=== PATIENT | female | born 1995 | race African-American/Black ===

== ENCOUNTER 2017-10-19 16:15 | Emergency (ER) | payer OTHER ==
[~2017-10-19] VITALS: Ht 160 cm; Wt 60.6 kg
[2017-10-19 16:21] VITALS: TEMP 37; Ht 160 cm; Wt 60.6 kg
[2017-10-19] MEDS ORDERED: ONDANSETRON INJ 2 MG/ML 2 ML VIAL IV STA (16:26)
[2017-10-19] MEDS ORDERED: SODIUM CHLORIDE 0.9% 1000ML 1,000 ML IV STA (16:26)
[2017-10-19] MEDS ORDERED: METHYLPREDNISOLONE 125 MG VIAL IV STA (16:26)
[2017-10-19] MEDS ORDERED: RANITIDINE HCL 50 MG/100 ML D5W IV STA (16:26)
[2017-10-19] MEDS ORDERED: EPINEPHRINE ADULT AUTO-INJECT 0.3 MG SYR IM STA (16:26)
[2017-10-19] MEDS ORDERED: DiphenhydrAMINE HCL 50 MG/ML VIAL IV STA (16:26)
--- NOTE | 2017-10-19 16:34 | EMERGENCY ROOM VISIT NOTE ---
History Report prepared by Jasonibevette: Roderick Wilcox Under the Supervision of: Dr. Johnathon Escoto M.D. First contact with patient: 16:24 Chief Complaint: ALLERGIC REACTION Stated Complaint: PEANUT ALLERGY SEVERE History of Present Illness The patient is a 22 year old female who presents to the Emergency Room with complaints of an allergic reaction that began just shortly prior to arrival. The patient notes that she has a known walnut allergy, and ingested a mix containing almonds and cashews about 30 minutes ago. The reaction started just a moment ago, roughly 30 minutes after eating the almonds and cashews. She is complaining of swelling across her face and difficulty breathing. She has never experienced a reaction this severe before, but has felt some mild puffiness to her lips in the past. The patient is a [employer] student, but is adamant that we do not call her mother. She denies any nausea/vomiting. 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 Review of Systems See HPI for pertinent positives & negatives. A total of 10 systems reviewed and were otherwise negative. Past Medical & Surgical Known Hx of [place] Allergy Family History non-contributory Social History Smoking Status: Never Smoker Marital Status: in relationship Housing Status: lives with roommate Occupation Status: student Current/Historical Medications Scheduled Epinephrine (Epipen), 0.3 MG IM UD Prednisone (Prednisone Tab), 0 PO DAILY Ranitidine Hcl (Zantac), 150 MG PO BID Allergies Coded Allergies: [place] (Unverified Allergy, Unknown, SWELLING OF LIPS, 10/19/17) Physical Exam Vital Signs Date Time Temp Pulse Resp B/P (MAP) Pulse Ox O2 Delivery O2 Flow Rate FiO2 10/19/17 18:09 78 20 105/65 100 10/19/17 17:47 76 84/44 97 Room Air 10/19/17 17:16 68 20 129/81 100 Room Air 10/19/17 16:46 91 20 110/76 98 Room Air 10/19/17 16:44 98 Room Air 10/19/17 16:34 132 10/19/17 16:21 37.0 102 18 75/50 94 Room Air Physical Exam GENERAL: Awake, alert, well-appearing, in no acute distress HENT: There is erythema to the face. atraumatic. Oropharynx unremarkable. No difficulty swallowing. No stridor on exam. EYES: Normal conjunctiva. Sclera non-icteric. NECK: Supple. No nuchal rigidity. FROM. No JVD. RESPIRATORY: Bilateral Wheezing present. CARDIAC: Regular rate, normal rhythm. Extremities warm and well perfused. Pulses equal. ABDOMEN: Soft, non-distended. No tenderness to palpation. No rebound or guarding. No masses. RECTAL: Deferred. MUSCULOSKELETAL: Chest examination reveals no tenderness. The back is symmetrical on inspection without obvious abnormality. There is no CVA tenderness to palpation. No joint edema. LOWER EXTREMITIES: Calves are equal size bilaterally and non-tender. No edema. No discoloration. NEURO: Normal sensorium. No sensory or motor deficits noted. SKIN: No rash or jaundice noted. Medical Decision & Procedures Medications Administered Medications (Trade) Dose Ordered Sig/Eufemia Route Start Time Stop Time Status Last Admin Dose Admin Sodium Chloride 1,000 ml @ 999 mls/hr Q1H1M STAT IV 10/19/17 16:26 10/19/17 17:26 DC 10/19/17 16:42 999 MLS/HR Methylprednisolone Sodium Succinate (Solu-Medrol IV) 125 mg NOW STAT IV 10/19/17 16:26 10/19/17 16:28 DC 10/19/17 16:34 125 MG Diphenhydramine HCl (Benadryl Inj) 50 mg NOW STAT IV 10/19/17 16:26 10/19/17 16:29 DC 10/19/17 16:35 50 MG Epinephrine (Epipen) 0.3 mg NOW STAT IM 10/19/17 16:26 10/19/17 16:29 DC 10/19/17 16:33 0.3 MG Ondansetron HCl (Zofran Inj) 4 mg NOW STAT IV 10/19/17 16:26 10/19/17 16:29 DC 10/19/17 16:35 4 MG Ranitidine HCl 50 mg/Dextrose 102 ml @ 204 mls/hr 1700 IV 10/19/17 17:00 10/19/17 17:29 DC 10/19/17 16:55 204 MLS/HR Metoclopramide HCl (Reglan Inj) 10 mg NOW STAT IV 10/19/17 16:55 10/19/17 16:56 DC 10/19/17 16:59 10 MG Lorazepam (Ativan Inj) 1 mg NOW STAT IV 10/19/17 17:09 10/19/17 17:10 DC 10/19/17 17:13 1 MG ED Course 162: Past medical records reviewed. The patient was evaluated in room B1. A complete history and physical examination was performed. 1626: Ordered Zofran 4 mg IV, Epipen 0.3 mg IM, Benadryl 50 mg IV, Solu-Medrol 125 mg IV, Sodium Chloride 1000 mL @ 999 mL/hr IV. 1653: The patient has told me that she has become very nauseous at this time. 1655: Ordered Reglan 10 mg IV. 170: Ordered Ranitidine HCl 50 mg/Dextrose 102 mL @ 204 mL/hr IV. 170: Ordered Lorazepam 1 mg IV. 1810: Upon reexamination the patient is resting in bed. I discussed results and treatment plan with the patient. She verbalizes agreement and understanding. The patient is ready for discharge. Medical Decision Differential diagnosis: Etiologies such as allergic reaction, anaphylaxis, urticaria, Doan-Ashkan syndrome, toxic epidermal necrolysis, erythema multiforme, cellulitis, as well as others were entertained. This is a 22-year-old female presents emergency department hypotensive tachycardic and complaining of difficulty breathing. I am concerned she is an anaphylactic shock. The patient was immediately placed in the trauma bay and given an EpiPen. An IV was established, the patient is given Solu-Medrol, Zantac, Benadryl. Repeat examination revealed much improvement in the patient' s symptoms. The patient was given multiple doses of nausea medication including Zofran and Reglan. She was also given Ativan to calm herself down. After some time the patient was observed in the emergency department for a total of 3 hours. I do believe she is well enough to be discharged home. I did offer to call this patient's mother and discuss her case with her however the patient adamantly refused. She was given EpiPen prescriptions as well as prednisone and Zantac for the next week. Patient was in agreement with the treatment plan. Impression Primary Impression: Allergic reaction Critical Care I have personally spent greater than 30 minutes of critical care time in the direct management of this patient. This includes bedside care, interpretation of diagnostic studies, and testing, discussion with consultants, patient, and family members, and other required patient management activities. This 30 minutes is in excess of all separately billable procedures. Scribe Attestation The scribe's documentation has been prepared under my direction and personally reviewed by me in its entirety. I confirm that the note above accurately reflects all work, treatment, procedures, and medical decision making performed by me. Departure Information Dispostion Home / Self-Care Prescriptions Epinephrine (EPIPEN) 0.3 Mg/0.3 Ml Inj 0.3 MG IM UD, #2 BOX Prov: Johnathon Escoto MD 10/19/17 Ranitidine Hcl (ZANTAC) 150 Mg Tab 150 MG PO BID for 7 Days, #14 TAB Prov: Johnathon Escoto MD 10/19/17 Prednisone (Prednisone Tab) 20 Mg Tab 0 PO DAILY, #7 TAB 2 TABS DAILY FOR 2 DAYS, THEN 1 TAB DAILY FOR 2 DAYS, THEN 1/2 TAB DAILY FOR 2 DAYS. Prov: Johnathon Escoto MD 10/19/17 Referrals No Doctor, Assigned (PCP) Forms HOME CARE DOCUMENTATION FORM, IMPORTANT VISIT INFORMATION Patient Instructions My [facility] Additional Instructions Take 50mg Benadryl every 6 hours Need follow up with frog catcher You have been examined and treated today on an emergency basis only. This is not a substitute for, or an effort to provide, complete comprehensive medical care. It is impossible to recognize and treat all injuries or illnesses in a single emergency department visit. It is therefore important that you follow up closely with your PCP. Call as soon as possible for an appointment. Thank you for your time and consideration. I look forward to speaking with you again soon. Please don't hesitate to call us if you have any questions. Problem Qualifiers Primary Impression: Allergic reaction Encounter type: initial encounter Qualified Codes: T78.40XA - Allergy, unspecified, initial encounter
[2017-10-19] MEDS ORDERED: METOCLOPRAMIDE HCL INJ 5 MG/ML 2 ML VIAL IV STA (16:55)
[2017-10-19] MEDS ORDERED: RANITIDINE IV 50 MG in DEXTROSE 5% 100ML 100 ML IV SCH (17:00)
[2017-10-19] MEDS ORDERED: LORAZEPAM 2 MG/ML 1 ML VIAL IV STA (17:09)
[2017-10-19] MEDS ORDERED: PRED20TA2 PO (17:48)
[2017-10-19] MEDS ORDERED: RANI150T3 PO (17:48)
[2017-10-19] MEDS ORDERED: EPP3/2 IM (17:50)
[2017-10-19 18:09] VITALS: BP 105/65; PULSE 78; O2SAT 100
== END 2017-10-19 18:11 | disposition home or self-care (01) ==
LOC: C.EDB 16:17
DX: T78.40XA Allergy, unspecified, initial encounter (principal); Z91.018 Allergy to other foods; X58.XXXA Exposure to other specified factors, initial encounter

== ENCOUNTER 2018-04-02 13:33 | Emergency (ER) | payer OTHER ==
[~2018-04-02] VITALS: Ht 160 cm; Wt 60.9 kg
[~2018-04-02 13:33] MED LIST: EPP3/2 IM; PRED20TA2 PO
[2018-04-02 13:47] VITALS: TEMP 36.5; Ht 160 cm; Wt 60.9 kg
[2018-04-02] MEDS ORDERED: LIDOCAINE 1% BUFFERED INJ 20 ML VIAL INFIL ONE (14:30)
--- NOTE | 2018-04-02 14:49 | EMERGENCY ROOM VISIT NOTE ---
ED Visit Note First contact with patient: 13:42 CHIEF COMPLAINT: Right third finger infection HPI: This 22-year-old female presents to ER with chief complaint of right third finger infection. The patient states that her right third finger is swollen and painful. She states that she went to [employer] on Thursday and was placed on Keflex. She is taking 500 mg twice a day. She has only been able to soak her finger once a day since she is working a lot of hours. 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 The patient states that she does not think that her finger is getting much better on the Keflex. She states they did not try and drain the finger. REVIEW OF SYSTEMS: 6 system review was performed and was negative unless stated otherwise in history of present illness. PMH: The patient is healthy; hypertension SOCIAL HISTORY: Patient is a [employer] student. The patient denies any tobacco or alcohol use. PHYSICAL EXAM: Vital Signs: Were reviewed reviewed Nurse's notes. GENERAL: 22- year-old female appears in no acute distress. MENTAL Status: Alert and oriented 3. RIGHT THIRD FINGER: There is swelling and tenderness of the nail fold around the finger. There is some fluctuance noted on the radial side of the nail. There is no pus under the nail. There is no lymphangitic streaking up the hand. EMERGENCY COURSE: The patient was evaluated. PROCEDURE: Verbal consent was obtained for I&D of the area. The finger was prepped with Betadine 3. A digital block was performed using 1% buffered lidocaine. Adequate anesthesia was obtained. The corner of the nail was lifted and trimmed. The radial side of the nailbed was lanced with an 18-gauge needle and significant amount of purulent fluid was expressed. Antibiotic ointment and a bandage was applied. The patient tolerated procedure well. DIAGNOSIS: Paronychia of the right third finger DISCHARGE INSTRUCTIONS: Soak the finger in hot water 4 times a day for 20 minutes each, increase Keflex to 500 mg 4 times a day. Take the Keflex until it is completed. Tylenol and/or ibuprofen as needed for pain. If symptoms persist or worsen, return to ER. Off work for the remainder of the day. Current/Historical Medications Scheduled Epinephrine (Epipen), 0.3 MG IM UD Allergies Coded Allergies: Nut [place] (Unverified Allergy, Intermediate, ANAPHYLAXIS, 04/02/18) [place] (Unverified Allergy, Unknown, SWELLING OF LIPS, 04/02/18) Vital Signs Date Time Temp Pulse Resp B/P (MAP) Pulse Ox O2 Delivery O2 Flow Rate FiO2 04/02/18 13:47 36.5 86 20 122/76 100 Room Air Departure Information Referrals No Doctor, Assigned (PCP) Patient Instructions [facility]
[2018-04-02] MEDS ORDERED: CEPH500C2 PO (14:51)
[2018-04-02 14:53] VITALS: BP 124/75; PULSE 79; O2SAT 99
== END 2018-04-02 14:55 | disposition home or self-care (01) ==
LOC: C.EDB 13:36 → C.EDD 14:55
DX: L03.011 Cellulitis of right finger (principal); I10 Essential (primary) hypertension; Z91.018 Allergy to other foods